=== PATIENT | male | born 1965 | race Caucasian/White ===

== ENCOUNTER 2018-01-13 05:47 | Day surgery (SDC) | payer BC ==
[2018-01-13] MEDS ORDERED: LACTATED RINGERS 1,000 ML ONE (06:03)
[2018-01-13] MEDS ORDERED: PROPOFOL 200 MG/20 ML VIAL IV ONE (07:00)
[2018-01-13] MEDS ORDERED: LIDOCAINE 1% 10 ML VIAL INJ ONE (07:00)
[2018-01-13 10:12] VITALS: BP 115/79; TEMP 97.1; O2SAT 98
--- NOTE | 2018-01-13 11:13 | OP ---
DATE OF PROCEDURE: 01/13/18 PREPROCEDURE DIAGNOSIS: 1. Colorectal cancer screening. POSTPROCEDURE DIAGNOSIS: 1. Diverticulosis. PROCEDURE: 1. Colonoscopy. SURGEON: Triston Young MD COMPLICATIONS: No immediate complications. SEDATION: The patient was sedated via IV propofol by the Anesthesia Department. CONSENT: Prior to the procedure, risks, benefits and alternatives to the therapy were discussed with the patient. The risks included bleeding, infection , perforation and . The patient agreed to the procedure and signed a consent. PREPROCEDURE ANESTHESIA ASSESSMENT: An examination revealed no contraindication to sedation. Airway examination demonstrated a Mallampati class type 2, ASA grade assessment type 2. Throughout the procedure, the patient's blood pressure and additional vital signs were closely monitored. PROCEDURE: The patient was placed in the left lateral decubitus position and a rectal examination was performed. The rectal examination was within normal limits. The Olympus colonoscope was passed in the anus, rectum, traversing the colon to the level of the cecum as identified by the appendiceal orifice. The scope was retracted and the mucosa was visualized. The entirety of the exam was performed under direct visualization. Retroflexion was performed in the rectum. Preparation quality was excellent. The withdrawal time was greater than 6 minutes. The patient tolerated the procedure well. FINDINGS: 1. Moderate to severe diverticulosis was found in the descending colon, sigmoid colon and rectosigmoid colon. 2. The entirety of the remainder of the exam of the colon was normal. 3. Retroflexion in the rectum was normal. 4. The terminal ileum was normal. RECOMMENDATION: 1. Return the patient home. 2. Resume previous diet. 3. Increase fiber intake in diet. May use Benefiber or Metamucil once or twice daily on a regular basis. 4. Return to referring physician as previously scheduled. 5. Repeat colonoscopy in the subsequent 10 years. 6. Primary care physician may check fecal occult blood testing/Cologuard in 3 years' time. 7. All questions and findings were discussed with the patient and family members. #[id number]
== END 2018-01-13 10:05 | disposition home or self-care (01) ==
LOC: AMB 05:47
PROVIDERS: ATTEND Family Medicine
DX: Z12.11 Encounter for screening for malignant neoplasm of colon (principal); K57.30 Diverticulosis of large intestine without perforation or abscess without bleeding; M19.90 Unspecified osteoarthritis, unspecified site; N40.0 Benign prostatic hyperplasia without lower urinary tract symptoms; E78.00 Pure hypercholesterolemia, unspecified; Z80.0 Family history of malignant neoplasm of digestive organs; Z79.899 Other long term (current) drug therapy
CPT/HCPCS: 00812; 45378; J3490; J7120

== ENCOUNTER 2018-04-08 05:50 | Day surgery (SDC) | payer BC ==
--- NOTE | 2018-04-05 13:12 | RAD ---
EXAM DESCRIPTION: Chest,2 Views CLINICAL HISTORY: PREOP FOR HERNIA SX COMPARISON: None TECHNIQUE: PA/lateral FINDINGS: There is no acute appearing cardiac or pulmonary abnormality. Heart size is normal with normal pulmonary vascularity. No pleural effusion or pneumothorax. Lungs are clear with no consolidating infiltrate. Lateral view shows intact sternum and T-spine. IMPRESSION: No acute process is identified in the chest. Electronically signed by: Kelby Bowers MD 04/05/2018 1:10 PM [employer]
[2018-04-08] MEDS ORDERED: SODIUM CHL 0.9% 100ML MINI-BAG 100 ML IVPB ONE (06:58)
[2018-04-08] MEDS ORDERED: ceFAZolin SODIUM 1 GM VIAL ONE (06:58)
[2018-04-08] MEDS ORDERED: LACTATED RINGERS 1,000 ML ONE (06:58)
[2018-04-08] MEDS ORDERED: PROPOFOL 200 MG/20 ML VIAL IV ONE (07:00)
[2018-04-08] MEDS ORDERED: raNITIdine HCL INJ 25 MG/ML VIAL ONE (07:00)
[2018-04-08] MEDS ORDERED: LIDOCAINE 1% 10 ML VIAL INJ ONE (07:00)
[2018-04-08] MEDS ORDERED: METOCLOPRAMIDE HCL INJ 10 MG/2 ML VIAL ONE (07:00)
[2018-04-08] MEDS ORDERED: ePHEDrine SULF 50 MG/ML ONE (07:00)
[2018-04-08] MEDS ORDERED: DEXAMETHASONE INJ 10 MG/ML VIAL ONE (07:00)
[2018-04-08] MEDS ORDERED: fentaNYL CITRATE INJ 50 MCG/ML AMP ONE (08:10)
[2018-04-08] MEDS ORDERED: MIDAZOLAM INJ 2 MG/2 ML VIAL ONE (08:10)
[2018-04-08] MEDS ORDERED: ROCURONIUM BROMIDE 10 MG/ML VIAL ONE (08:52)
[2018-04-08] MEDS ORDERED: ACETAMINOPHEN IV 1000MG 100 ML ONE (08:59)
[2018-04-08] MEDS: BUPIVACAINE 0.25% W/EPI 50 ML VIAL INJ ONE ×2 (09:13→09:18)
[2018-04-08] MEDS ORDERED: KETOROLAC TROMETHAMINE INJ 30 MG/ML VIAL ONE (10:32)
--- NOTE | 2018-04-08 10:50 | OP ---
DATE OF PROCEDURE: 04/08/18 PREOPERATIVE DIAGNOSIS: 1. Reducible left inguinal hernia. POSTOPERATIVE DIAGNOSIS: 1. Reducible left inguinal hernia, direct. PROCEDURE: 1. Repair of left inguinal hernia with Surgimesh Easy Plug. SURGEON: Alexandre Isaacs MD. FITTER MECHANIC: None. ANESTHESIA: General laryngeal mask anesthesia and local infiltration of 0.25% Marcaine with epinephrine. INDICATION: The patient is a 52-year-old male who noted a lump in his left groin 3 to 4 weeks ago. There was no history of injury. It was reducible, but mildly uncomfortable, so he was brought to the Surgical Suite for repair after risks, benefits and alternatives to the procedure were discussed and accepted. FINDINGS: The patient had a direct defect with no sliding component. There was no indirect component identified. PROCEDURE: After adequate general anesthesia was obtained, the patient was prepped and draped in the usual sterile manner. At this point, a surgical time- out was taken. An oblique incision was fashioned in the left groin, first with local infiltration of anesthesia, then with a sharp knife. Dissection was carried down through the skin and subcutaneous tissue to the external oblique fascia using electrocautery and blunt dissection. The self-retaining retractor was placed at this level. The external oblique fascia was then opened in the direction of the fibers through the external inguinal ring. The external oblique fascia was dissected free from the floor of the canal and the self- retaining retractor was placed at this level. When this was done, the cord was dissected free from the floor of the canal using blunt dissection. A half inch [place] drain was placed around it for traction. When this was done, the hernia sac was identified and dissected free from the cord using blunt dissection and electrocautery. At this point, the nerves had been identified, retracted superiorly. The hernia sac was then incised at its base circumferentially and was then reduced below the floor of the canal and the floor of the canal was dissected free. The Surgimesh patch was then introduced under the floor of the canal and sutured circumferentially with interrupted 2-0 Vicryl sutures. When this was done, hemostasis was noted to be adequate. At this point, the Surgimesh patch was sutured around the cord in the usual manner with interrupted 2-0 Vicryl sutures. When this was done, the wound was irrigated with saline. The cord was placed back in position in the canal. Hemostasis was noted to be adequate. At this point, the external oblique fascia was closed with running 3- 0 Vicryl suture. The cord and subcutaneous tissue above, below and lateral to the incision were infiltrated with local anesthesia. The Kenn's fascia was approximated with interrupted 3-0 Chromic suture. Skin edges were approximated with skin stapler. Sterile pressure dressing was applied. The testicle was checked for position in the scrotum. The patient was then awakened and taken to the Recovery Room in good and stable condition. Estimated blood loss was less than 50 mL. All sponge, needle and instrument counts were correct. #[id number] MTDD
[2018-04-08] MEDS ORDERED: HYDROcodone 5MG/APAP 325MG 1 EA TAB ONE (11:27)
[2018-04-08 13:08] VITALS: BP 130/73; TEMP 97.1; O2SAT 99
== END 2018-04-08 12:00 | disposition home or self-care (01) ==
LOC: AMB 05:50
PROVIDERS: ATTEND Surgery
DX: K40.90 Unilateral inguinal hernia, without obstruction or gangrene, not specified as recurrent (principal); Z87.442 Personal history of urinary calculi; Z79.82 Long term (current) use of aspirin; Z79.899 Other long term (current) drug therapy
CPT/HCPCS: 00830; 36415; 49505; 71046; 80053; 81001; 85025; 93005; C1781; J0690; J1100; J1885; J2250; J2765; J2780; J3010; J3490; J7050; J7120

== ENCOUNTER → 2019-09-20 | Outpatient (CLI) | payer BC ==
--- NOTE | 2019-09-20 15:41 | CT ---
EXAM: Head CLINICAL HISTORY: HEADACHE COMPARISON STUDY: None TECHNICAL: Noncontrast CT images were acquired through the brain. FINDINGS: The cerebral and cerebellar parenchyma appears normal. No intracranial hemorrhage. No masses are identified. The calvarium appears intact. IMPRESSION: NEGATIVE HEAD CT WITHOUT CONTRAST. This exam was performed according to our departmental dose-optimization program, which includes automated exposure control, adjustment of the mA and/or kV according to patient size and/or use of iterative reconstruction technique. Electronically signed by: Nolberto Araujo MD 09/20/2019 3:39 PM CDT
== END ==
LOC: CT 10:35
PROVIDERS: ATTEND Family Medicine
DX: R51 Headache (principal)

== ENCOUNTER → 2019-12-20 | Outpatient (CLI) | payer OTHER | LOC: GMAJ 10:48 | PROVIDERS: ATTEND Family Medicine | DX: N40.0 Benign prostatic hyperplasia without lower urinary tract symptoms (principal); E78.2 Mixed hyperlipidemia ==